=== PATIENT | female | born 1940 | race Caucasian/White ===

== ENCOUNTER → 2017-03-27 | Outpatient (CLI) | payer MEDICARE ==
[~2017-03-27] MED LIST: ACE325 PO; ALLO-119 PO; AMLO-1 PO; AMLO-96 PO; ASP325 PO; ASPI-1267 PO; ASPI-1471 PO; ASPI-274 PO; ATEN-1 PO; ATOR20TA22 PO; AZIT500T47 PO; BENZ100C26 PO; BENZ100C4 PO; CELE100C79 PO; CHOL200038 PO; CIPR-344 PO; COLC0.6C3 PO; CYAN20003 PO; CYCL10TA29 PO; DIPH-1 PO; ESOM40SU2 PO; EST625 PO; FERR-53 PO; FERR325T24 PO; GABA-547 PO; GABA-549 PO; HYDR-385 PO; LIDO10VI16 INTRA-ART; LIDO10VI16 INTRABUR; LOM PO; LOR5/325 PO; LOSA-51 PO; LOSA100T67 PO; LOSA50TA73 PO; MECL-205 PO; MELO-150 PO; MELO-207 PO; METF-410 PO; METH4TAB66 PO; METO-259 PO; METO50TA19 PO; METXR500 PO; MULT-1378 PO; NIT3 PO; NIT4; NIT4 SL; OMEP-125 PO; OMEP-153 PO; ONDA4TAB PO; OXYC1TAB54 PO; OXYGEN INH; PAN20 PO; PAN40 PO; PIO15 PO; PIOG45TA18 PO; PNEU0.5D3 IM; PRAV40TA77 PO; PREG50CA48 PO; ROS10 PO; ROSU10TA13 PO; ROSU20TA23 PO; SIMV-49 PO; TEL40 PO; TELM1TAB20 PO; TELM80TA5 PO; TRA50 PO; TRI40I IART; TRI40I INTRABUR
== END ==
LOC: LAB 14:52
PROVIDERS: ATTEND Emergency Medicine
DX: E11.29 Type 2 diabetes mellitus with other diabetic kidney complication (principal)
CPT/HCPCS: 36415; 83036

== ENCOUNTER → 2017-08-22 | Outpatient (CLI) | payer MEDICARE ==
[~2017-08-22] MED LIST changes: +MECL12.5 PO; -METF-410 PO; +METF-411 PO
== END ==
LOC: LAB 11:45
PROVIDERS: ATTEND Emergency Medicine
DX: M54.9 Dorsalgia, unspecified (principal)
CPT/HCPCS: 81001

== ENCOUNTER → 2017-09-22 | Outpatient (CLI) | payer MEDICARE ==
[~2017-09-22] MED LIST changes: +ASPI81TA86 PO; +CYAN100088 PO; -ROSU10TA13 PO; +ROSU10TA5 PO
[2017-09-22 09:07] LABS: PLATELET COUNT, AUTOMATED 254 K/uL (150-450)
== END ==
LOC: LAB 08:45
PROVIDERS: ATTEND Emergency Medicine
DX: E11.29 Type 2 diabetes mellitus with other diabetic kidney complication (principal)
CPT/HCPCS: 36415; 82040; 82247; 82310; 82374; 82435; 82465; 82565; 82947; 83718; 84075; 84132; 84155; 84295; 84450; 84460; 84478; 84520; 85025

== ENCOUNTER → 2017-10-12 | Outpatient (CLI) | payer MEDICARE ==
[~2017-10-12] MED LIST changes: +PRAV20TA65 PO
[2017-10-12 16:36] LABS: PLATELET COUNT, AUTOMATED 258 K/uL (150-450)
== END ==
LOC: LAB 15:51
PROVIDERS: ATTEND Emergency Medicine
DX: G62.9 Polyneuropathy, unspecified (principal); E11.29 Type 2 diabetes mellitus with other diabetic kidney complication
CPT/HCPCS: 36415; 82607; 83036; 85007; 85027

== ENCOUNTER 2017-12-15 13:02 | Emergency (ER) | payer MEDICARE ==
[~2017-12-15 13:02] MED LIST changes: +AMLO-111 PO; -AMLO-96 PO; +CYAN500T54 PO; -LOSA100T67 PO; +LOSA100T69 PO; -METF-411 PO; +METF-450 PO; +VARI50KI IM
--- NOTE | 2017-12-15 13:06 | ER Report ---
History and Physical Time Seen By MD: 13:06 (OUMOU PASTOR MD) HPI/ROS CHIEF COMPLAINT: Fall down steps, back pain HISTORY OF PRESENT ILLNESS: 77-year-old female who presents to the emergency department after a fall down approximately 10 steps at home. Patient states that she was carrying laundry up a flight of stairs on her left leg gave out and she fell backwards striking her back and head. She denies any loss of consciousness. She complains of neck pain and thoracic as well as lumbar pain she complains of left shoulder pain. REVIEW OF SYSTEMS: Constitutional: No fever, no chills. Cardiovascular: No chest pain, no palpitations. Respiratory: No cough, no shortness of breath. Gastrointestinal: No abdominal pain, no vomiting. Musculoskeletal: back pain. Skin: No rashes. Neurological: No headache. (OUMOU PASTOR MD) Allergies: Coded Allergies: Sulfa (Sulfonamide Antibiotics) (Verified Allergy, Intermediate, FEVER, 12/15/17) codeine (Verified Allergy, Intermediate, FEVER, 12/15/17) pioglitazone (Verified Allergy, Unknown, 12/15/17) tramadol (Verified Allergy, Unknown, SEDATION, 12/15/17) NSAIDS (Non-Steroidal Anti-Inflamma (Verified Adverse Reaction, Intermediate, elevated creatinine, 12/15/17) simvastatin (Verified Adverse Reaction, Intermediate, myalgia in legs, 12/15/17) muscle pain in both thighs resolved in 06/27 when simva stopped. Home Meds Active Scripts Calcitonin,[place]arn[place],Synthetic (CALCITONIN-SALMON) 3.7 Ml [place].pump, 3.7 ML NS DAILY, #1 BOTTLE Prov:PATRIC GARRISON DO 12/15/17 Methocarbamol (ROBAXIN-750) 750 Mg Tablet, 1500 MG PO TID for Muscle Relaxant, #20 TAB 0 Refills Prov:OUMOU PASTOR MD 12/15/17 Oxycodone Hcl/Acetaminophen (PERCOCET 5-325 MG TABLET) 1 Each Tablet, 1 EACH PO Q6H for PAIN, #12 TAB 0 Refills Prov:OUMOU PASTOR MD 12/15/17 Pravastatin Sodium (PRAVACHOL) 20 Mg Tablet, 20 MG PO QDAY, #30 TAB 11 Refills Prov:DEVANG WATERMAN MD 10/12/17 Meclizine Hcl (MECLIZINE HCL) 12.5 Mg Tablet, 12.5 MG PO BID, #180 TAB 3 Refills Prov:DEVANG WATERMAN MD 10/10/17 Colchicine (Colchicine) 0.6 Mg Capsule, 1 CAP PO DAILY, #90 CAP 4 Refills Prov:DEVANG WATERMAN MD 03/27/17 Losartan/Hydrochlorothiazide (LOSARTAN-HCTZ 50-12.5 MG TAB) 1 Each Tablet, 1 EACH PO QDAY, #90 TAB 3 Refills Prov:DEVANG WATERMAN MD 02/09/17 Omeprazole (OMEPRAZOLE) 20 Mg Capsule.dr, 1 CAP PO BID, #180 CAP 3 Refills TAKE ONE CAPSULE BY MOUTH TWICE A DAY Prov:DEVANG WATERMAN MD 02/09/17 Gabapentin (GABAPENTIN) 300 Mg Capsule, 300 MG PO TID, #270 CAPSULE 3 Refills Prov:DEVANG WATERMAN MD 02/09/17 Metoprolol Succinate (METOPROLOL SUCCINATE) 50 Mg Tab.er.24h, 1 TAB PO QDAY, #90 TAB 3 Refills Prov:DEVANG WATERMAN MD 02/09/17 Metformin Hcl (METFORMIN HCL) 500 Mg Tablet, 1 TAB PO BID, #180 TAB 3 Refills TAKE ONE TABLET BY MOUTH TWO TIMES A DAY WITH FOOD Prov:DEVANG WATERMAN MD 02/09/17 Reported Medications Cyanocobalamin (Vitamin B-12) (B-12) 500 Mcg Tablet, 500 MCG PO DAILY 10/18/17 Aspirin (ASPIRIN EC) 81 Mg Tablet.dr, 81 MG PO QDAY, TAB 09/25/17 Cholecalciferol (Vitamin D3) (VITAMIN D3) 2,000 Unit Tablet, 2000 UNIT PO QDAY 10/03/13 Past Medical/Surgical History Medical history for type II diabetes, diabetic neuropathy, gastroesophageal reflux disease, hypercholesterolemia, hypertension (OUMOU PASTOR MD) Hx Smoking: No Smoking Status: Former Smoker Hx Substance Use Disorder: No Hx Alcohol Use: No (OUMOU PASTOR MD) Constitutional Vital Sign - Last 24 Hours 12/15/17 12/15/17 12/15/17 12/15/17 13:07 13:10 13:17 13:58 Temp 97.9 Pulse 69 68 Resp 16 B/P (MAP) 143/73 (96) 143/73 123/58 (79) Pulse Ox 88 91 O2 Delivery Room Air 12/15/17 12/15/17 14:02 14:17 Pulse 66 64 Pulse Ox 92 97 (LAURORA,PATRIC V DO) Physical Exam General Appearance: The patient is alert, has no immediate need for airway protection and no signs of toxicity. [ ] Eyes: Pupils equal and round no pallor or injection ENT, Mouth: Mucous membranes are moist. Neck: In cervical collar Respiratory: There are no retractions, lungs are clear to auscultation. Cardiovascular: Regular rate and rhythm. Gastrointestinal: Abdomen is soft and non tender, no masses, bowel sounds normal. Neurological: Awake and alert Skin: Warm and dry, no rashes. Patient with abrasion to the back of the neck. [Musculoskeletal:] [Neck is supple non tender.] Tender throughout cervical thoracic and lumbar spine also left shoulder pain no obvious deformity. [ ] [DIFFERENTIAL DIAGNOSIS: After history and physical exam differential diagnosis was considered for] [ ] (OUMOU PASTOR MD) Medical Decision Making ED Course/Re-evaluation ED Course Plan at this time will be to checks CT of head cervical spine also x-rayed the left shoulder thoracic and lumbar spine. (OUMOU PASTOR MD) ED Course 12/15/2017 2:44:15 pm Pt signed out to me pending imaging. Pt imaging is back. Pt feeling much better without the c-collar so it was removed. Pts does have pain midline T6-8 so the age indeterminant compression may be acute on chronic. Pt feels she can go home. Pt has walker at home to assist. PT does have degenerative changes and osteoporosis. Will add calcitonin nasal spray to pts pain medications per Dr. Pastor. Decision to Disposition Date: Dec 15, 2017 Decision to Disposition Time: 14:46 (LAURORA,PATRIC V DO) Depart Departure Latest Vital Signs Vital Signs Date Time Temp Pulse Resp B/P (MAP) Pulse Ox O2 Delivery O2 Flow Rate FiO2 12/15/17 14:17 64 97 12/15/17 13:58 123/58 (79) 12/15/17 13:10 97.9 16 Room Air (LAURORA,PATRIC V DO) Impression: Primary Impression: Back pain Additional Impressions: Fall down stairs Compression fracture of thoracic vertebra Degenerative arthritis of spine Condition: Improved Disposition: HOME OR SELF-CARE Referrals: DEVANG WATERMAN MD (PCP) 5 Days New Scripts Calcitonin,Farnham,Synthetic (CALCITONIN-SALMON) 3.7 Ml [place].pump 3.7 ML NS DAILY, #1 BOTTLE Prov: PATRIC GARRISON DO 12/15/17 Methocarbamol (ROBAXIN-750) 750 Mg Tablet 1500 MG PO TID for Muscle Relaxant, #20 TAB 0 Refills Prov: OUMOU PASTOR MD 12/15/17 Oxycodone Hcl/Acetaminophen (PERCOCET 5-325 MG TABLET) 1 Each Tablet 1 EACH PO Q6H for PAIN, #12 TAB 0 Refills Prov: OUMOU PASTOR MD 12/15/17 Patient Instructions: Arthritis (ED), Back Pain (ED), Vertebral Compression Fracture (ED) Additional Instructions: Your cat scan of your head was stable. Your cat scan of your spine shows degenerative changes/arthritis. You have a compression fracture of your thoracic spine, T8, which appears old however could have been reinjured with your fall today. This could be causing you increased pain. Robaxin one every 4-6 hours as needed for muscle stiffness Percocet one every 4-6 hours as needed for pain. Calcitonin nasal spray one spray in one nostril daily. This will help with break down of your bones/osteoporosis. Use your walker for assistance. Follow up with your doctor. Return as needed. Problem Qualifiers Primary Impression: Back pain Back pain location: back pain in unspecified location Chronicity: acute Back pain laterality: bilateral Qualified Codes: M54.9 - Dorsalgia, unspecified Additional Impressions: Fall down stairs Encounter type: initial encounter Qualified Codes: W10.8XXA - Fall (on) (from) other stairs and steps, initial encounter Compression fracture of thoracic vertebra Encounter type: initial encounter Fracture type: closed Qualified Codes: S22.000A - Wedge compression fracture of unspecified thoracic vertebra, initial encounter for closed fracture Degenerative arthritis of spine Spinal region: unspecified Spinal osteoarthritis complication: without myelopathy or radiculopathy Qualified Codes: M47.819 - Spondylosis without myelopathy or radiculopathy, site unspecified OUMOU PASTOR MD Dec 15, 2017 13:06 PATRIC GARRISON DO Dec 15, 2017 14:53
[2017-12-15] MEDS ORDERED: ONDANSETRON 4 MG ODT TABDP SL ONE (13:15)
[2017-12-15] MEDS ORDERED: METH-543 PO (14:06)
[2017-12-15] MEDS ORDERED: OXYC-865 PO (14:06)
--- NOTE | 2017-12-15 14:16 | RADIOLOGY IMAGING REPORT ---
FACILITY: [facility] - [place] PATIENT NAME: Coleen Pena : 1940 MR: [id number] V: [id number] EXAM DATE: ORDERING PHYSICIAN: OUMOU BARKSDALE TECHNOLOGIST: Location: [facility] - [place] Patient: Coleen Pena : 1940 Visit/Account:[id number] Date of Sevice: 12/15/[address] scan without contrast HISTORY: Fall COMPARISONS: None TECHNIQUE: Non-contrast head CT was performed with sagittal and coronal reformations. One of the following dose optimization techniques was utilized in the performance of this exam: autom ated exposure control; adjustment of the mA and/or kV according to patient size; or use of iterative reconstruction technique. Specific details can be referenced in the facility's radiology CT exam ope rational policy. FINDINGS: There is no intracranial hemorrhage, hydrocephalus or midline shift. The basal cisterns, sunshine-white differentiation, and convexity sulci are maintained. Cataract postsurgical change noted. The mastoid air cells are clear. The paranasal sinuses are clear. The osseous structures are normal . IMPRESSION: No acute intracranial abnormality. Report Dictated By: Alex Navarro MD at 12/15/2017 2:10 PM Report E-Signed By: Alex Navarro MD at 12/15/2017 2:12 PM WSN:[id number]
--- NOTE | 2017-12-15 14:19 | RADIOLOGY IMAGING REPORT ---
FACILITY: [facility] PATIENT NAME: Coleen Pena : 1940 MR: [id number] V: [id number] EXAM DATE: ORDERING PHYSICIAN: OUMOU BARKSDALE TECHNOLOGIST: Location: [facility] Patient: Coleen Pena : 1940 Visit/Account:[id number] Date of Sevice: 12/15/2017 EXAMINATION: Lumbar spine radiographs 2 views HISTORY: Fall COMPARISON: None. FINDINGS: On lateral views obtained. Vertebral body heights are normal. No fracture identified. Multilevel disc space degeneration most pr onounced at L1-2 and L4-5 where there is severe disc space degeneration. Moderate to severe multileve l facet arthropathy. Slight anterolisthesis of L3 on L4. Mild convexity left scoliosis. IMPRESSION: No acute finding. Degenerative findings as described above. Report Dictated By: Alex Navarro MD at 12/15/2017 2:13 PM Report E-Signed By: Alex Navarro MD at 12/15/2017 2:14 PM WSN:[id number]
--- NOTE | 2017-12-15 14:20 | RADIOLOGY IMAGING REPORT ---
FACILITY: [facility] PATIENT NAME: Coleen Pena : 1940 MR: [id number] V: [id number] EXAM DATE: ORDERING PHYSICIAN: OUMOU BARKSDALE TECHNOLOGIST: Location: [facility] - [place] Patient: Coleen Pena : 1940 Visit/Account:[id number] Date of Sevice: 12/15/2017 EXAMINATION: CT Cervical spine without intravenous contrast HISTORY: Fall COMPARISON: None. TECHNIQUE: Axial images were obtained from the skull base through the upper thoracic spine without I V contrast administration. Coronal and sagittal reformatted images were generated from the axial sour ce data. One of the following dose optimization techniques was utilized in the performance of this exam: autom ated exposure control; adjustment of the mA and/or kV according to patient size; or use of iterative reconstruction technique. Specific details can be referenced in the facility's radiology CT exam ope rational policy. FINDINGS: Vertebral bodies and posterior elements: Normal vertebral body heights. No fracture or osseous destr uction. Multilevel mild to moderate facet arthropathy. Alignment: Normal. Disc Spaces: Multilevel disc space degeneration most pronounced at C3-4 there is moderate disc space degeneration. Multilevel degenerative foraminal narrowing. Soft tissues: Normal. Visualized upper chest: Normal. IMPRESSION: No acute fracture or acute abnormality. Degenerative findings as described above. Report Dictated By: Alex Navarro MD at 12/15/2017 2:14 PM Report E-Signed By: Alex Navarro MD at 12/15/2017 2:17 PM WSN:[id number]
--- NOTE | 2017-12-15 14:22 | RADIOLOGY IMAGING REPORT ---
FACILITY: [facility] PATIENT NAME: Coleen Pena : 1940 MR: [id number] V: [id number] EXAM DATE: ORDERING PHYSICIAN: OUMOU BARKSDALE TECHNOLOGIST: [place] [facility] [place]: Coleen Pena : 1940 Visit/Account:[id number] Date of Sevice: 12/15/2017 EXAMINATION: Left shoulder radiographs 2 views HISTORY: Fall COMPARISON: None. FINDINGS: Frontal and scapula Y views obtained. Bones: Degenerative subchondral cyst in the superolateral proximal humerus. No fracture. Surgical ab sence of the distal clavicle. Joint spaces: Normal. Alignment: Normal. Soft tissues / visualized lungs: Normal. IMPRESSION: No fracture or malalignment. Report Dictated By: Alex Navarro MD at 12/15/2017 2:17 PM Report E-Signed By: Alex Navarro MD at 12/15/2017 2:17 PM WSN:[id number]
--- NOTE | 2017-12-15 14:25 | RADIOLOGY IMAGING REPORT ---
FACILITY: [facility] - [place] PATIENT NAME: Coleen Pena : 1940 MR: [id number] V: [id number] EXAM DATE: ORDERING PHYSICIAN: OUMOU BARKSDALE TECHNOLOGIST: [place] [facility] [place]: Coleen Pena : 1940 Visit/Account:[id number] Date of Sevice: 12/15/2017 EXAMINATION: Thoracic spine radiographs 2 views HISTORY: Fall COMPARISON: None. FINDINGS: Frontal and 2 lateral views obtained. The visible lungs are clear. Exaggerated thoracic kyphosis. Mild multilevel disc space degeneration. Mild age-indeterminate wedging of the T8 vertebral body seen on the frontal view. Otherwise normal ve rtebral body heights. IMPRESSION: Age-indeterminate mild T8 wedge compression deformity seen on frontal view. This may be chronic. Son elate with site of pain. If there is concern for acute fracture at this level CT or MR could be utili zed for further characterization. Report Dictated By: Alex Navarro MD at 12/15/2017 2:17 PM Report E-Signed By: Alex Navarro MD at 12/15/2017 2:19 PM WSN:[id number]
[2017-12-15 14:30] VITALS: BP 106/52
[2017-12-15] MEDS ORDERED: CALC3.7S10 NS (14:49)
== END 2017-12-15 15:15 | disposition home or self-care (01) ==
LOC: ER 13:10
DX: M47.819 Spondylosis without myelopathy or radiculopathy, site unspecified (principal); S22.000A Wedge compression fracture of unspecified thoracic vertebra, initial encounter for closed fracture; M54.9 Dorsalgia, unspecified; M25.512 Pain in left shoulder; G31.89 Other specified degenerative diseases of nervous system
CPT/HCPCS: 70450; 72072; 72100; 72125; 73030; 99284; A9270; L0172; Q0162; S0119

== ENCOUNTER → 2018-01-03 | Outpatient (CLI) | payer MEDICARE ==
[~2018-01-03] MED LIST changes: +CALC3.7S10 NS; +METH-543 PO; +ONDA4TAB97 PO; +OXYC-865 PO
--- NOTE | 2018-01-03 13:35 | RADIOLOGY IMAGING REPORT ---
[place] [facility] [place]IENT NAME: Coleen Pena : 1940 MR: [id number] V: [id number] EXAM DATE: ORDERING PHYSICIAN: DEVANG WATERMAN TECHNOLOGIST: Location: [facility] - [place] Patient: Coleen Pena : 1940 Visit/Account:[id number] Date of Sevice: 01/03/2018 Clinical history: Postmenopausal, osteoporosis screening. Comparison: 01/02/2015. LUMBAR SPINE: The bone mineral density (BMD) measured from L1-L4 correlates with a Z-score of 5.4 and a T-score of 4.1 which is normal as defined by the World Health Organization. The corresponding risk of fracture in the lumbar spine is not increased compared with a young adult reference population. This value corrigan s decreased by 1.3 % since the prior study. More than 5% change is considered significant. HIP: Bone mineral density (BMD) measured in the left Total Hip region correlates with a Z-score of 1.3 and a T-score of -0.3 which is normal as defined by the World Health Organization. The corresponding ri sk of fracture in the hip is not increased compared with a young adult reference population. This va lue has decreased by 5.3 % since the prior study. More than 5% change is considered significant. Bone mineral density (BMD) measured in the left femoral neck correlates with a Z-score of 1.2 and a T -score of -0.6 which is normal as defined by the World Health Organization. The corresponding risk o f fracture in the hip is increased 1-2 times compared with a young adult reference population. This value has increased by 0.6 % since the prior study. More than 5% change is considered significant. Bone mineral density (BMD) measured in the left Femoral Neck region measures 0.958 g/cm2. IMPRESSION: 1. Lumbar spine: Normal. There has been no significant change in the bone mineral density since th previous exam. 2. Left total hip: Normal. There has been significant decrease in the bone mineral density since the previous exam. 3. Left Femoral Neck: Normal. There has been no significant change in the bone mineral density since the previous exam 4. Left femoral neck bone mineral density: 0.958 g/cm2. The next DEXA scan of this patient should include the following sites: Lumbar spine and left hip. FRAX(R) WHO Fracture Risk Assessment Tool link: http://www.shef.ac.uk/FRAX/tool.jsp?locationValue=9 PLEASE NOTE: 1) The World Health Organization defines low BMD as follows: T-score Normal > -1 Osteopenia < -1 and > -2.5 Osteoporosis < -2.5 without fractures Established osteoporosis < -2.5 with fractures 2) In general, you may wish to consider: Diagnosis Treatment Follow-up DEXA Normal BMD Prevention 2-3 years Osteopenia Prevention/therapy 1-2 years Osteoporosis Therapy Yearly 3) Fracture risk estimated from the T-score is more accurate for vertebral fractures (often spontane ous) than for hip fractures Report Dictated By: Emmanuelle Hercules MD at 01/03/2018 12:17 PM Report E-Signed By: Emmanuelle Hercules MD at 01/03/2018 1:30 PM WSN:[id number]
== END ==
LOC: RAD 06:46
PROVIDERS: ATTEND Emergency Medicine
DX: S22.000A Wedge compression fracture of unspecified thoracic vertebra, initial encounter for closed fracture (principal)
CPT/HCPCS: 77080

== ENCOUNTER → 2018-05-02 | Outpatient (CLI) | payer MEDICARE ==
[~2018-05-02] MED LIST changes: -AMLO-111 PO; +AMLO-125 PO; -LOSA100T69 PO; +LOSA100T75 PO; +PRAV40TA78 PO; -ROSU20TA23 PO; +ROSU20TA24 PO
== END ==
LOC: LAB 15:54
PROVIDERS: ATTEND Emergency Medicine
DX: E53.8 Deficiency of other specified B group vitamins (principal); N18.3 Chronic kidney disease, stage 3 (moderate); M10.9 Gout, unspecified
CPT/HCPCS: 36415; 82306; 82310; 82374; 82435; 82565; 82607; 82947; 83036; 83970; 84132; 84295; 84520; 84550

== ENCOUNTER → 2018-06-07 | Outpatient (CLI) | payer MEDICARE ==
[~2018-06-07] MED LIST changes: +ALLO100T70 PO
== END ==
LOC: LAB 15:15
PROVIDERS: ATTEND Emergency Medicine
DX: N39.0 Urinary tract infection, site not specified (principal); E78.00 Pure hypercholesterolemia, unspecified; R39.9 Unspecified symptoms and signs involving the genitourinary system; N18.3 Chronic kidney disease, stage 3 (moderate); M10.9 Gout, unspecified; B96.89 Other specified bacterial agents as the cause of diseases classified elsewhere
CPT/HCPCS: 36415; 81001; 82310; 82374; 82435; 82465; 82565; 82947; 83718; 84132; 84295; 84478; 84520; 84550; 87088